=== PATIENT | male | born 1970 ===

== ENCOUNTER 2025-09-17 11:29 | Outpatient (AMB) | payer OTHER, SELFPAY ==
--- NOTE | 2025-09-17 11:37 | MHC.OFFVIS ---
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 He is a patient of . He is seen for the following urologic conditions - testicular cancer - nephrolithiasis Check baseline testicular labs Renal ultrasound for nephrolithiasis Testicular cancer - [address] Dominguez NCCN guideline suggests yearly follow-up out to [address] scan - 5 mm distal left ureteric stone Review of Systems Const Denies chills and Denies fever(s) Card Reports no additional complaints and Denies syncope Resp Denies cough GI Denies abdominal pain and Denies heartburn Reports as per HPI and Denies change in libido Neuro Denies syncope Psych Denies change in libido Endo Denies change in libido Physical Exam Const General: cooperative, healthy appearing, comfortable and no acute distress Orientation/consciousness: patient oriented x3 HEENT Face and sinus: Yes normal facial exam Mouth: moist mucous membranes Neck Neck: Yes normal visual inspection, Yes full ROM and Yes trachea midline Chest Chest palpation & inspection: normal inspection of the chest Resp Effort & Inspection: normal respiratory effort, able to speak in complete sentences and no respiratory distress GI Inspection: Yes normal to inspection Back/Spine/Pelvis Cervical Spine: normal cervical lordosis Thoracic/Lumbar Spine: thoracic and lumbar spine normal to inspection Skin General skin exam: no rashes or lesions noted Neuro General: patient oriented x3, gait normal, tone normal and moves all extremities Extrem General: Yes normal to inspection and Yes capillary refill normal Assessment & Plan Assessment & Plan (1) Nephrolithiasis: Code(s): N20.0 - Calculus of kidney Category: Medical (2) Testicular cancer: Code(s): C62.90 - Malignant neoplasm of unspecified testis, unspecified whether descended or undescended Category: Medical Plan Check baseline labs Follow-up renal ultrasound Orders: Orders Alpha Fetoprotein Today C62.90 - Malignant neoplasm of unspecified testis, unspecified whether descended or undescended Lactate Dehydrogenase Today C62.90 - Malignant neoplasm of unspecified testis, unspecified whether descended or undescended US renal BI 3 Months N20.0 - Calculus of kidney HCG Tumor Marker Today C62.90 - Malignant neoplasm of unspecified testis, unspecified whether descended or undescended Patient Instructions: This note is constructed using voice recognition software. While every effort has been made to ensure accuracy permastone mechanic errors may have been included. Imaging studies, laboratory and physical exam results were discussed and reviewed in detail. No major barriers to patient understanding were identified. An opportunity to ask questions regarding the treatment plan was provided. All questions were answered. The patient expressed understanding and agreement with the above treatment plan. The patient is aware they should contact our office by phone for worsening of their current condition or the appearance of new urologic symptoms. Compliance is encouraged with any medications and followup testing that is ordered. It is a privilege to participate in the urologic care of your patient. If you have any questions or concerns regarding treatment for the above conditions, or other urologic issues, please do not hesitate to contact me. The office telephone contact is [phone]. Sincerely, Dr Tab Zelaya MD, [facility] - Urology Compassionate Specialist Care for the Genitourinary System Coding Level of Care Code New Pt Level 3 (68063) Diagnoses Nephrolithiasis N20.0 Testicular cancer C62.90
--- OUTSIDE RECORDS SUMMARY | 2025-09-17 15:13 | XMS_ITS | Clinical Summary ---
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 Name Role Phone Unavailable Primary Care Provider Unavailabl e Social History Tobacco Use Types Packs/Day Years Used Date Smoking Tobacco: Never Assessed Sex and Gender Information Value Date Recorded Sex Assigned at Not on file Gender Identity Not on file Sexual Orientation Not on file Plan of Treatment Health Maintenance Due Date Last Done Comments Hepatitis B Vaccines (1 of 3 - 3-dose series) 1970 Hepatitis C Screening 1970 COVID-19 Vaccine (#1) 02/06/1971 Depression Screening 1982 Preventative Health Evaluation 1988 DTap / Tdap / Td (1 - Tdap) 1989 Colon Cancer Screening (Colonoscopy) 2015 Shingrix-Zoster Vaccine (1 of 2) 2020 Influenza Vaccine (#1) 2025 Pneumococcal Vaccine Aged Out No long er eligible based on patient's age to complete this topic RSV Ped < 20 months Aged Out No longe r eligible based on patient's age to complete this topic Advance Directives For more information, please contact: [phone] Documents on File Type Date Recorded Patient Client Engagement Manager Expl anation Advance Directive and Living Will 03/31/2017 2:01 PM
== END 2025-09-17 12:08 | disposition home or self-care (01) ==
LOC: HO.HUSH 11:30
PROVIDERS: PCP Family Medicine; Visit Provider Urology
DX: N20.0 Calculus of kidney (principal); C62.90 Malignant neoplasm of unspecified testis, unspecified whether descended or undescended
CPT/HCPCS: 99203

== ENCOUNTER → 2025-09-17 11:29 | Outpatient (BNVA) | payer OTHER, SELFPAY | PROVIDERS: PCP Family Medicine; Visit Provider Urology | DX: N20.0 Calculus of kidney (principal); C62.90 Malignant neoplasm of unspecified testis, unspecified whether descended or undescended | CPT/HCPCS: 99202 ==